=== PATIENT | male | born 1995 | race Caucasian/White ===

== ENCOUNTER 2016-10-07 12:48 | Inpatient (IN) | payer MEDICAID, OTHER ==
[~2016-10-07] VITALS: Ht 170.2 cm; Wt 56.4 kg
[~2016-10-07 12:48] MED LIST: [UNRECOGNIZED DRUG - CODE] TD
[2016-10-07 13:10] LABS: BASOPHILS % (AUTO) 0.1 % (0.0-2.0); EOSINOPHILS % (AUTO) 0.9 % (1.0-6.0); LYMPHOCYTES # (AUTO) 1.6 K/uL (1.0-4.8); LYMPHOCYTES % (AUTO) 32.8 % (22.0-44.0); MEAN CORPUSCULAR HEMOGLOBIN 27.5 pg (26.0-34.0); MEAN CORPUSCULAR HGB CONC 32.7 G/dL (31.0-37.0); MEAN CORPUSCULAR VOLUME 84 fL (80-100); MONOCYTES # (AUTO) 0.3 K/uL (0.1-1.0); MONOCYTES % (AUTO) 5.6 % (2.0-9.0); NEUTROPHILS % (AUTO) 60.6 % (40.0-70.0); PLATELET COUNT (AUTO) 209 K/uL (150-450); RED BLOOD CELL COUNT(AUTO) 5.81 MIL/uL (4.50-5.90); RED CELL DISTRIBUTION WIDTH 12.9 % (11.5-14.5)
[2016-10-07 13:19] LABS: ANION GAP 12 mmol/L (8-16); CALCIUM, TOTAL 9.2 mg/dL (8.8-10.5); CARBON DIOXIDE 26 mmol/L (22-29); CHLORIDE 104 mmol/L (98-107); CREATININE 0.85 mg/dL (0.60-1.30); GLOMERULAR FILTR. RATE CALC > 60 mL/min (>60); POTASSIUM 3.7 mmol/L (3.5-5.1); SODIUM SERUM 142 mmol/L (136-145); UREA NITROGEN, BLOOD 14 mg/dL (7-18)
[2016-10-07 13:25] LABS: ALANINE AMINOTRANSFERASE 24 U/L (12-78); ALBUMIN 4.7 g/dL (3.4-5.0); ASPARTATE AMINOTRANSFERASE 13 U/L (15-37); TOTAL PROTEIN, SERUM 8.3 g/dL (6.4-8.2)
[2016-10-07] MEDS ORDERED: HALOPERIDOL 5 MG TABLET PO PRN (17:15)
[2016-10-07] MEDS ORDERED: LORazepam 2 MG TABLET PO PRN (17:15)
[2016-10-07] MEDS ORDERED: ZOLPIDEM TARTRATE 10 MG TABLET PO PRN (17:15)
[2016-10-07 20:05] VITALS: BP 134/64
[2016-10-07 21:51] LABS: CHOL/HDL RATIO 4.6 (4.2-7.3)
[2016-10-07 23:26] LABS: ADD UA MICROSCOPIC NO; APPEARANCE,URINE CLEAR (CLEAR); GLUCOSE, URINE (UA) NEGATIVE (NEGATIVE); KETONES,URINE NEGATIVE (NEGATIVE); LEUKOCYTE ESTERASE ,URINE NEGATIVE (NEGATIVE); OCCULT BLOOD,URINE NEGATIVE (NEGATIVE); PROTEIN,URINE NEGATIVE (NEGATIVE)
[2016-10-08] MEDS ORDERED: PETROLATUM,WHITE 71 GM JELLY TP PRN (07:45)
[2016-10-08] MEDS ORDERED: ONDANSETRON HCL 4 MG TABLET PO PRN (07:45)
[2016-10-08] MEDS ORDERED: LOPERAMIDE HCL 2 MG CAPSULE PO PRN (07:45)
[2016-10-08] MEDS ORDERED: ACETAMINOPHEN 325 MG TABLET PO PRN (07:45)
[2016-10-08] MEDS ORDERED: ALBUTEROL SULFATE HFA 90 MCG/PUFF 8 GM INHALER IH PRN (07:45)
[2016-10-08] MEDS ORDERED: MAG HYDROX/AL HYDROX/SIMETH ES 30 ML SUSPENSION UDCUP PO PRN (07:45)
[2016-10-08] MEDS ORDERED: CloNIDine HCL 0.1 MG TABLET PO PRN (07:45)
[2016-10-08] MEDS ORDERED: BACITRACIN 28.4 GM OINTMENT TP PRN (07:45)
[2016-10-08] MEDS ORDERED: IBUPROFEN 600 MG TABLET PO PRN (07:45)
[2016-10-08] MEDS ORDERED: MAGNESIUM HYDROXIDE SUSPENSION 30 ML UDCUP PO PRN (07:45)
[2016-10-08] MEDS ORDERED: BENZOCAINE/MENTHOL LOZENGE [8 LOZENGES/PACKET] MM PRN (08:00)
[2016-10-08 08:01] VITALS: BP 136/64
[2016-10-08 18:17] VITALS: BP 129/72
[2016-10-09 08:01] VITALS: BP 142/56
[2016-10-09 16:09] VITALS: BP 138/71
[2016-10-10 11:33] VITALS: BP 138/80
== END 2016-10-10 13:00 | disposition home or self-care (01) | DRG 751 ==
LOC: EMS 12:50 → EEVIPCON 12:50 → 3EI 18:31
DX: F29 Unspecified psychosis not due to a substance or known physiological condition (principal); E44.0 Moderate protein-calorie malnutrition; F41.9 Anxiety disorder, unspecified; G47.00 Insomnia, unspecified; Z79.899 Other long term (current) drug therapy; Z68.1 Body mass index [BMI] 19.9 or less, adult
CPT/HCPCS: 99285; G0480

== ENCOUNTER 2017-04-09 19:14 | Emergency (ER) | payer MEDICAID, OTHER ==
[~2017-04-09] VITALS: Ht 170.2 cm; Wt 62.0 kg
[2017-04-09 21:51] VITALS: BP 126/75
== END 2017-04-09 22:35 | disposition home or self-care (01) ==
LOC: EMS 19:19
DX: F20.0 Paranoid schizophrenia (principal)
CPT/HCPCS: 99284; 99285

== ENCOUNTER 2017-08-08 07:15 | Inpatient (IN) | payer MEDICAID, OTHER ==
[~2017-08-08] VITALS: Ht 172.7 cm; Wt 67.0 kg
[2017-08-08] MEDS ORDERED: HALOPERIDOL LACTATE 5 MG/ML VIAL IM ONE (07:30)
[2017-08-08] MEDS ORDERED: LORazepam 2 MG/ML VIAL IM ONE (07:30)
[2017-08-08] MEDS ORDERED: DiphenhydrAMINE HCL 50 MG/ML VIAL IM ONE (07:30)
[2017-08-08] MEDS ORDERED: ZOLPIDEM TARTRATE 10 MG TABLET PO PRN (08:30)
[2017-08-08 09:28] LABS: BASOPHILS % (AUTO) 0.3 % (0.0-2.0); EOSINOPHILS % (AUTO) 0 % (1.0-6.0); HEMATOCRIT 42.9 % (41-53); HEMOGLOBIN 14.6 g/dL (13.5-17.5); LYMPHOCYTES # (AUTO) 0.8 K/uL (1.0-4.8); LYMPHOCYTES % (AUTO) 10.8 % (22.0-44.0); MEAN CORPUSCULAR HEMOGLOBIN 27.7 pg (26.0-34.0); MEAN CORPUSCULAR VOLUME 82 fL (80-100); MONOCYTES # (AUTO) 0.4 K/uL (0.1-1.0); MONOCYTES % (AUTO) 5.9 % (2.0-9.0); NEUTROPHILS # (AUTO) 5.8 K/uL (1.8-7.7); PLATELET COUNT (AUTO) 203 K/uL (150-450); RED BLOOD CELL COUNT(AUTO) 5.26 MIL/uL (4.50-5.90); RED CELL DISTRIBUTION WIDTH 13.3 % (11.5-14.5)
[2017-08-08 09:42] LABS: ANION GAP 15 mmol/L (8-16); CALCIUM, TOTAL 9.4 mg/dL (8.8-10.5); CARBON DIOXIDE 25 mmol/L (22-29); CHLORIDE 103 mmol/L (98-107); CREATININE 0.85 mg/dL (0.60-1.30); GLOMERULAR FILTR. RATE CALC > 60 mL/min (>60); GLUCOSE,RANDOM 104 mg/dL (70-110); POTASSIUM 3.7 mmol/L (3.5-5.1); SODIUM SERUM 143 mmol/L (136-145); UREA NITROGEN, BLOOD 19 mg/dL (7-18)
[2017-08-08 09:47] LABS: ALANINE AMINOTRANSFERASE 48 U/L (12-78); ALBUMIN 4.8 g/dL (3.4-5.0); ALKALINE PHOSPHATASE 79 U/L (46-116); ASPARTATE AMINOTRANSFERASE 18 U/L (15-37); TOTAL PROTEIN, SERUM 8.2 g/dL (6.4-8.2)
[2017-08-08 10:01] LABS: AMPHET/METH SCREEN,URINE NEGATIVE (NEGATIVE); BARBITURATE SCREEN, URINE NEGATIVE (NEGATIVE); BENZODIAZEPINES SCREEN,URINE NEGATIVE (NEGATIVE); CANNABINOID SCREEN,URINE POSITIVE (NEGATIVE); COCAINE SCREEN,URINE NEGATIVE (NEGATIVE); METHADONE SCREEN, URINE NEGATIVE (NEGATIVE); OPIATE SCREEN,URINE NEGATIVE (NEGATIVE)
[2017-08-08 10:02] LABS: PHENCYCLIDINE SCREEN,URINE NEGATIVE (NEGATIVE)
[2017-08-08] MEDS: RisperiDONE 1 MG TABLET PO SCH ×3 (11:30→16:42)
[2017-08-08 13:18] VITALS: BP 142/81
[2017-08-08] MEDS: LORazepam 2 MG TABLET PO PRN (16:41)
[2017-08-08] MEDS: HALOPERIDOL 5 MG TABLET PO PRN (16:41)
[2017-08-08] MEDS ORDERED: INFLUENZA VIRUS VACCINE QVS 2017-18 (3YR+)/PF 60 MCG/0.5 ML SYRINGE IM ONE (18:15)
[2017-08-09 08:14] VITALS: BP 137/77
[2017-08-09] MEDS: RisperiDONE 1 MG TABLET PO SCH ×2 (09:00→17:00)
[2017-08-09] MEDS ORDERED: PETROLATUM,WHITE 71 GM JELLY TP PRN (13:30)
[2017-08-09] MEDS ORDERED: IBUPROFEN 600 MG TABLET PO PRN (13:30)
[2017-08-09] MEDS ORDERED: ACETAMINOPHEN 325 MG TABLET PO PRN (13:30)
[2017-08-09] MEDS ORDERED: ONDANSETRON HCL 4 MG TABLET PO PRN (13:30)
[2017-08-09] MEDS ORDERED: MAGNESIUM HYDROXIDE SUSPENSION 30 ML UDCUP PO PRN (13:30)
[2017-08-09] MEDS ORDERED: BACITRACIN 28.4 GM OINTMENT TP PRN (13:30)
[2017-08-09] MEDS ORDERED: MAG HYDROX/AL HYDROX/SIMETH ES 30 ML SUSPENSION UDCUP PO PRN (13:30)
[2017-08-09] MEDS ORDERED: LOPERAMIDE HCL 2 MG CAPSULE PO PRN (13:30)
[2017-08-09] MEDS ORDERED: ALBUTEROL SULFATE HFA 90 MCG/PUFF 8 GM INHALER IH PRN (13:30)
[2017-08-09] MEDS ORDERED: BENZOCAINE/MENTHOL LOZENGE MM PRN (13:30)
[2017-08-09] MEDS ORDERED: CloNIDine HCL 0.1 MG TABLET PO PRN (13:30)
[2017-08-09 17:19] VITALS: BP 127/62
[2017-08-10 06:56] VITALS: BP 122/65
[2017-08-10 08:35] VITALS: BP 131/61
[2017-08-10] MEDS: RisperiDONE 1 MG TABLET PO SCH ×3 (09:00→16:52)
[2017-08-10 16:00] VITALS: BP 136/70
[2017-08-10] MEDS: HALOPERIDOL 5 MG TABLET PO PRN (16:52)
[2017-08-10] MEDS: LORazepam 2 MG TABLET PO PRN (16:52)
[2017-08-11 05:58] VITALS: BP 133/72
[2017-08-11 08:12] VITALS: BP 129/61
[2017-08-11] MEDS: RisperiDONE 1 MG TABLET PO SCH ×2 (08:40→16:12)
[2017-08-11 16:00] VITALS: BP 140/72
[2017-08-11] MEDS: HALOPERIDOL 5 MG TABLET PO PRN (16:12)
[2017-08-11] MEDS: LORazepam 2 MG TABLET PO PRN (16:12)
[2017-08-12 08:13] VITALS: BP 126/67
[2017-08-12] MEDS: RisperiDONE 1 MG TABLET PO SCH (08:56)
[2017-08-12] MEDS ORDERED: RISP2 PO (09:01)
== END 2017-08-12 15:38 | disposition home or self-care (01) | DRG 750 ==
LOC: EMS 07:16 → B3A 10:55
DX: F20.0 Paranoid schizophrenia (principal); F17.200 Nicotine dependence, unspecified, uncomplicated; F12.90 Cannabis use, unspecified, uncomplicated; G47.00 Insomnia, unspecified; Z79.899 Other long term (current) drug therapy
CPT/HCPCS: G0480; J1200; J1630; J2060

== ENCOUNTER 2017-08-21 13:05 | Inpatient (IN) | payer MEDICAID, OTHER ==
[~2017-08-21] VITALS: Ht 172.7 cm; Wt 68.0 kg
[~2017-08-21 13:05] MED LIST changes: +RISP2 PO; -[UNRECOGNIZED DRUG - CODE] TD
[2017-08-21] MEDS ORDERED: HALOPERIDOL LACTATE 5 MG/ML VIAL IM ONE (15:45)
[2017-08-21] MEDS ORDERED: LORazepam 2 MG/ML VIAL IM ONE (15:45)
[2017-08-21] MEDS ORDERED: DiphenhydrAMINE HCL 50 MG/ML VIAL IM ONE (15:45)
[2017-08-21] MEDS: RisperiDONE 2 MG TABLET PO SCH (19:56)
[2017-08-21 20:17] VITALS: BP 132/88
[2017-08-21] MEDS ORDERED: INFLUENZA VIRUS VACCINE QVS 2017-18 (3YR+)/PF 60 MCG/0.5 ML SYRINGE IM ONE (20:45)
[2017-08-22 06:42] VITALS: BP 122/79
[2017-08-22] MEDS: RisperiDONE 2 MG TABLET PO SCH ×2 (08:10→17:00)
[2017-08-22 08:14] VITALS: BP 132/79
[2017-08-22] MEDS ORDERED: ONDANSETRON HCL 4 MG TABLET PO PRN (10:30)
[2017-08-22] MEDS ORDERED: ACETAMINOPHEN 325 MG TABLET PO PRN (10:30)
[2017-08-22] MEDS ORDERED: ALBUTEROL SULFATE HFA 90 MCG/PUFF 8 GM INHALER IH PRN (10:30)
[2017-08-22] MEDS ORDERED: BENZOCAINE/MENTHOL LOZENGE MM PRN (10:30)
[2017-08-22] MEDS ORDERED: LOPERAMIDE HCL 2 MG CAPSULE PO PRN (10:30)
[2017-08-22] MEDS ORDERED: CloNIDine HCL 0.1 MG TABLET PO PRN (10:30)
[2017-08-22] MEDS ORDERED: PETROLATUM,WHITE 71 GM JELLY TP PRN (10:30)
[2017-08-22] MEDS ORDERED: BACITRACIN 28.4 GM OINTMENT TP PRN (10:30)
[2017-08-22] MEDS ORDERED: MAG HYDROX/AL HYDROX/SIMETH ES 30 ML SUSPENSION UDCUP PO PRN (10:30)
[2017-08-22] MEDS ORDERED: MAGNESIUM HYDROXIDE SUSPENSION 30 ML UDCUP PO PRN (10:30)
[2017-08-22] MEDS ORDERED: IBUPROFEN 600 MG TABLET PO PRN (10:30)
[2017-08-22 16:29] VITALS: BP 127/76
[2017-08-23 06:39] VITALS: BP 105/61
[2017-08-23] MEDS: RisperiDONE 2 MG TABLET PO SCH ×2 (08:08→16:44)
[2017-08-23 08:24] VITALS: BP 116/63
[2017-08-23 16:26] VITALS: BP 124/84
[2017-08-24 05:45] VITALS: BP 118/83
[2017-08-24 08:46] VITALS: BP 122/63
[2017-08-24] MEDS: RisperiDONE 2 MG TABLET PO SCH ×2 (08:46→16:12)
[2017-08-24 16:00] VITALS: BP 123/65
[2017-08-24] MEDS: HALOPERIDOL 5 MG TABLET PO PRN (18:54)
[2017-08-24] MEDS: LORazepam 2 MG TABLET PO PRN (18:54)
[2017-08-24] MEDS: ZOLPIDEM TARTRATE 10 MG TABLET PO PRN (20:47)
[2017-08-25 06:28] VITALS: BP 108/75
[2017-08-25 08:03] VITALS: BP 110/88
[2017-08-25] MEDS: RisperiDONE 2 MG TABLET PO SCH ×2 (09:32→16:52)
[2017-08-25] MEDS: HALOPERIDOL 5 MG TABLET PO PRN ×2 (13:04→20:00)
[2017-08-25] MEDS: LORazepam 2 MG TABLET PO PRN ×2 (13:04→20:00)
[2017-08-25] MEDS: ZOLPIDEM TARTRATE 10 MG TABLET PO PRN (20:00)
[2017-08-26 03:45] VITALS: BP 119/73
[2017-08-26 08:02] VITALS: BP 113/64
[2017-08-26] MEDS: RisperiDONE 2 MG TABLET PO SCH ×2 (08:34→16:21)
[2017-08-26 16:00] VITALS: BP 133/73
[2017-08-26] MEDS: HALOPERIDOL 5 MG TABLET PO PRN (16:21)
[2017-08-26] MEDS: LORazepam 2 MG TABLET PO PRN ×2 (16:21→20:49)
[2017-08-26] MEDS: ZOLPIDEM TARTRATE 10 MG TABLET PO PRN (20:49)
[2017-08-27 01:32] VITALS: BP 122/63
[2017-08-27 08:10] VITALS: BP 122/67
[2017-08-27] MEDS: RisperiDONE 2 MG TABLET PO SCH ×2 (08:37→16:13)
[2017-08-27] MEDS: LORazepam 2 MG TABLET PO PRN ×2 (15:44→20:46)
[2017-08-27] MEDS: HALOPERIDOL 5 MG TABLET PO PRN (15:44)
[2017-08-27 16:11] VITALS: BP 122/68
[2017-08-27] MEDS: ZOLPIDEM TARTRATE 10 MG TABLET PO PRN (20:46)
[2017-08-28 00:54] VITALS: BP 103/68
[2017-08-28 08:22] VITALS: BP 120/61
[2017-08-28] MEDS: RisperiDONE 2 MG TABLET PO SCH ×2 (08:36→16:08)
[2017-08-28 16:00] VITALS: BP 116/67
[2017-08-28] MEDS: LORazepam 2 MG TABLET PO PRN (16:08)
[2017-08-28] MEDS: HALOPERIDOL 5 MG TABLET PO PRN (16:08)
[2017-08-29 06:38] VITALS: BP 107/65
[2017-08-29 08:02] VITALS: BP 118/68
[2017-08-29] MEDS: RisperiDONE 2 MG TABLET PO SCH ×2 (08:26→16:12)
[2017-08-29] MEDS: LORazepam 2 MG TABLET PO PRN ×3 (09:48→20:17)
[2017-08-29 16:00] VITALS: BP 112/66
[2017-08-29] MEDS: HALOPERIDOL 5 MG TABLET PO PRN (16:12)
[2017-08-29] MEDS: ZOLPIDEM TARTRATE 10 MG TABLET PO PRN (20:17)
[2017-08-30 03:49] VITALS: BP 125/71
[2017-08-30 08:04] VITALS: BP 114/70
[2017-08-30] MEDS: RisperiDONE 2 MG TABLET PO SCH ×2 (08:30→16:14)
[2017-08-30] MEDS: LORazepam 2 MG TABLET PO PRN ×2 (13:18→17:34)
[2017-08-30 16:00] VITALS: BP 135/66
[2017-08-30] MEDS: HALOPERIDOL 5 MG TABLET PO PRN (17:34)
[2017-08-31 01:06] VITALS: BP 138/62
[2017-08-31 08:02] VITALS: BP 116/72
[2017-08-31] MEDS: RisperiDONE 2 MG TABLET PO SCH (08:34)
[2017-08-31] MEDS ORDERED: RISP2 PO (09:45)
== END 2017-08-31 13:45 | disposition home or self-care (01) | DRG 750 ==
LOC: EMS 13:07 → B3A 19:49
DX: F20.0 Paranoid schizophrenia (principal); Z91.19 Patient's noncompliance with other medical treatment and regimen; F17.200 Nicotine dependence, unspecified, uncomplicated; F12.90 Cannabis use, unspecified, uncomplicated; G47.00 Insomnia, unspecified; R03.0 Elevated blood-pressure reading, without diagnosis of hypertension; Z71.51 Drug abuse counseling and surveillance of drug abuser; Z71.6 Tobacco abuse counseling; Z79.899 Other long term (current) drug therapy; Z28.21 Immunization not carried out because of patient refusal
CPT/HCPCS: 87081; 96372; 99285; J1200; J1630; J2060

== ENCOUNTER 2017-09-01 16:50 | Emergency (ER) | payer MEDICAID, OTHER ==
[~2017-09-01] VITALS: Ht 172.7 cm; Wt 67.3 kg
[2017-09-01 19:44] LABS: BASOPHILS % (AUTO) 0.3 % (0.0-2.0); EOSINOPHILS % (AUTO) 0.2 % (1.0-6.0); HEMATOCRIT 43.7 % (41-53); HEMOGLOBIN 15.2 g/dL (13.5-17.5); LYMPHOCYTES # (AUTO) 1.2 K/uL (1.0-4.8); LYMPHOCYTES % (AUTO) 12.1 % (22.0-44.0); MEAN CORPUSCULAR HEMOGLOBIN 28.1 pg (26.0-34.0); MEAN CORPUSCULAR HGB CONC 34.7 G/dL (31.0-37.0); MEAN CORPUSCULAR VOLUME 81 fL (80-100); MONOCYTES # (AUTO) 0.8 K/uL (0.1-1.0); MONOCYTES % (AUTO) 7.6 % (2.0-9.0); NEUTROPHILS # (AUTO) 8.1 K/uL (1.8-7.7); NEUTROPHILS % (AUTO) 79.8 % (40.0-70.0); PLATELET COUNT (AUTO) 200 K/uL (150-450); RED BLOOD CELL COUNT(AUTO) 5.39 MIL/uL (4.50-5.90); RED CELL DISTRIBUTION WIDTH 13.1 % (11.5-14.5)
[2017-09-01 19:51] LABS: ANION GAP 9 mmol/L (8-16); CALCIUM, TOTAL 9.7 mg/dL (8.8-10.5); CARBON DIOXIDE 25 mmol/L (22-29); CHLORIDE 100 mmol/L (98-107); GLOMERULAR FILTR. RATE CALC > 60 mL/min (>60); GLUCOSE,RANDOM 141 mg/dL (70-110); POTASSIUM 3.5 mmol/L (3.5-5.1); SODIUM SERUM 134 mmol/L (136-145); UREA NITROGEN, BLOOD 10 mg/dL (7-18)
[2017-09-01 19:57] LABS: ALANINE AMINOTRANSFERASE 42 U/L (12-78); ALKALINE PHOSPHATASE 115 U/L (46-116); ASPARTATE AMINOTRANSFERASE 23 U/L (15-37); BILIRUBIN,TOTAL 0.5 mg/dL (0.1-1.0); TOTAL PROTEIN, SERUM 8.8 g/dL (6.4-8.2)
[2017-09-01 20:27] LABS: AMPHET/METH SCREEN,URINE NEGATIVE (NEGATIVE); BARBITURATE SCREEN, URINE NEGATIVE (NEGATIVE); BENZODIAZEPINES SCREEN,URINE NEGATIVE (NEGATIVE); CANNABINOID SCREEN,URINE NEGATIVE (NEGATIVE); COCAINE SCREEN,URINE NEGATIVE (NEGATIVE); METHADONE SCREEN, URINE NEGATIVE (NEGATIVE); OPIATE SCREEN,URINE NEGATIVE (NEGATIVE)
[2017-09-01 20:28] LABS: PHENCYCLIDINE SCREEN,URINE NEGATIVE (NEGATIVE)
[2017-09-01] MEDS ORDERED: RisperiDONE 1 MG TABLET PO ONE (22:45)
[2017-09-01 23:14] VITALS: BP 134/79
[2017-09-01] MEDS ORDERED: LORazepam 1 MG TABLET PO ONE (23:15)
[2017-09-01] MEDS ORDERED: DiphenhydrAMINE HCL 25 MG CAPSULE PO ONE (23:15)
== END 2017-09-01 23:15 | disposition home or self-care (01) ==
LOC: EMS 16:52 → EEVIPCON 16:52 → EMS 23:15
DX: F91.8 Other conduct disorders (principal); F20.9 Schizophrenia, unspecified
CPT/HCPCS: 36415; 80053; 80307; 85025; 99285; G0480

== ENCOUNTER 2018-03-22 17:52 | Inpatient (IN) | payer MEDICAID, OTHER ==
[~2018-03-22] VITALS: Ht 172.7 cm; Wt 80.1 kg
[2018-03-22] MEDS ORDERED: OLAN2.5T3 PO (18:53)
[2018-03-22] MEDS ORDERED: ZOLPIDEM TARTRATE 10 MG TABLET PO PRN (20:15)
[2018-03-23] MEDS ORDERED: DiphenhydrAMINE HCL 50 MG/ML VIAL ONE (00:47)
[2018-03-23] MEDS ORDERED: HALOPERIDOL LACTATE 5 MG/ML VIAL ONE (00:47)
[2018-03-23] MEDS ORDERED: LORazepam 2 MG/ML VIAL ONE (00:47)
[2018-03-23] MEDS ORDERED: HALOPERIDOL LACTATE 5 MG/ML VIAL IM ONE (01:00)
[2018-03-23] MEDS ORDERED: ZOLPIDEM TARTRATE 10 MG TABLET PO PRN (01:00)
[2018-03-23] MEDS ORDERED: LORazepam 2 MG/ML VIAL IM ONE (01:00)
[2018-03-23] MEDS ORDERED: DiphenhydrAMINE HCL 50 MG/ML VIAL IM ONE (01:00)
[2018-03-23] MEDS ORDERED: LORazepam 2 MG TABLET PO PRN (01:00)
[2018-03-23] MEDS ORDERED: OLANZapine 5 MG TABLET PO PRN (01:00)
[2018-03-23 02:00] VITALS: BP 135/67
[2018-03-23 08:04] VITALS: BP 138/61
[2018-03-23] MEDS: LORazepam 2 MG TABLET PO PRN ×2 (08:56→17:24)
[2018-03-23] MEDS: HALOPERIDOL 5 MG TABLET PO PRN ×2 (08:56→17:24)
[2018-03-23] MEDS ORDERED: LOPERAMIDE HCL 2 MG CAPSULE PO PRN (14:45)
[2018-03-23] MEDS ORDERED: MAGNESIUM HYDROXIDE SUSPENSION 30 ML UDCUP PO PRN (14:45)
[2018-03-23] MEDS ORDERED: TUBERCULIN, PURIFIED PROTEIN DERIVATIVE 5 TU/0.1 ML SYG ID ONE (14:45)
[2018-03-23] MEDS ORDERED: MAG HYDROX/AL HYDROX/SIMETH ES 30 ML SUSPENSION UDCUP PO PRN (14:45)
[2018-03-23] MEDS ORDERED: HydrOXYzine PAMOATE 50 MG CAPSULE PO PRN (14:45)
[2018-03-23] MEDS ORDERED: GuaiFENesin/D-METHORPHAN [SUGAR-FREE] 200-20MG/10 ML SYRUP UDCUP PO PRN (14:45)
[2018-03-23] MEDS ORDERED: ACETAMINOPHEN 325 MG TABLET PO PRN (14:45)
[2018-03-23] MEDS ORDERED: PROMETHAZINE HCL 25 MG TABLET PO PRN (14:45)
[2018-03-23 16:00] VITALS: BP 112/78
[2018-03-23] MEDS: THIAMINE HCL 100 MG TABLET PO SCH (17:25)
[2018-03-23] MEDS ORDERED: OLANZapine 5 MG RAPDIS TABLET PO SCH (21:00)
[2018-03-24 07:00] VITALS: BP 121/65
[2018-03-24 08:04] VITALS: BP 118/68
[2018-03-24] MEDS: MULTIVITAMINS WITH MINERALS, THERAPEUTIC TABLET PO SCH (08:52)
[2018-03-24] MEDS: THIAMINE HCL 100 MG TABLET PO SCH ×2 (08:52→17:01)
[2018-03-24] MEDS: FOLIC ACID 1 MG TABLET PO SCH (08:52)
[2018-03-24 16:30] VITALS: BP 139/86
[2018-03-24] MEDS: HALOPERIDOL 5 MG TABLET PO PRN (16:57)
[2018-03-24] MEDS: LORazepam 2 MG TABLET PO PRN (16:57)
[2018-03-24] MEDS ORDERED: OLANZapine 10 MG RAPDIS TABLET PO SCH (21:00)
[2018-03-25 01:20] VITALS: BP 116/82
[2018-03-25 08:16] VITALS: BP 138/61
[2018-03-25] MEDS: MULTIVITAMINS WITH MINERALS, THERAPEUTIC TABLET PO SCH (09:00)
[2018-03-25] MEDS: THIAMINE HCL 100 MG TABLET PO SCH ×2 (09:00→16:51)
[2018-03-25] MEDS: FOLIC ACID 1 MG TABLET PO SCH (09:00)
[2018-03-25] MEDS ORDERED: OLAN10TA22 PO (15:36)
[2018-03-25 16:03] VITALS: BP 135/77
== END 2018-03-25 19:00 | disposition home or self-care (01) | DRG 750 ==
LOC: EMS 17:53 → B3A 20:00
PROVIDERS: ADMIT Psychiatry & Neurology Psychiatry; ATTEND Psychiatry & Neurology Psychiatry
DX: F20.9 Schizophrenia, unspecified (principal); Z91.19 Patient's noncompliance with other medical treatment and regimen; F12.90 Cannabis use, unspecified, uncomplicated; F17.200 Nicotine dependence, unspecified, uncomplicated; Z71.51 Drug abuse counseling and surveillance of drug abuser; G47.00 Insomnia, unspecified; Z56.0 Unemployment, unspecified; Z71.6 Tobacco abuse counseling; F41.9 Anxiety disorder, unspecified; Z65.3 Problems related to other legal circumstances
CPT/HCPCS: 99285; J1200; J1630; J2060

== ENCOUNTER 2019-02-22 11:04 | Emergency (ER) | payer SELFPAY ==
[~2019-02-22] VITALS: Ht 170.2 cm; Wt 75.0 kg
[~2019-02-22 11:04] MED LIST changes: +OLAN10TA6 PO; -RISP2 PO
[2019-02-22 13:01] VITALS: BP 133/85
== END 2019-02-22 13:05 | disposition home or self-care (01) ==
LOC: EMS 11:10
DX: L98.8 Other specified disorders of the skin and subcutaneous tissue (principal)